=== PATIENT | male | born 1935 | race Caucasian/White ===

== ENCOUNTER 2018-09-28 19:50 | Inpatient (IN) | payer MEDICARE, OTHER ==
[2018-09-28 22:14] LABS: ADD MAN DIFF? NO
[2018-09-28 22:16] LABS: BASOPHILS % 0.3 % (0.0-2.0); EOSINOPHILS # 0.1 10^3/ul (0.0-0.5); HEMATOCRIT 41.3 % (42.0-52.0); LYMPHOCYTES # 1.8 10^3/ul (0.8-2.9); MEAN CORPUSCULAR HGB CONC 33.9 g/dl (32.0-37.0); MEAN CORPUSCULAR VOLUME 100.2 fl (82.0-101.0); MONOCYTE # 0.6 10^3/ul (0.3-0.9); MONOCYTES % 5.4 % (0.0-11.0); NEUTROPHIL # 8.1 10^3/ul (1.6-7.5); PLATELET COUNT 140 10^3/UL (140-415); POSITIVE DIFF @See below; RED BLOOD COUNT 4.12 10^6/ul (4.70-6.10); RED CELL DISTRIBUTION WIDTH 13.1 % (11.5-14.5)
[2018-09-28 22:16] LABS: WHITE BLOOD COUNT 10.7 10^3/ul (4.8-10.8)
[2018-09-28] MEDS: ONDANSETRON 4 MG INJ IV (22:18)
[2018-09-28 22:46] LABS: ALANINE AMINOTRANSFERASE 19 IU/L (13-69); ALBUMIN 4.1 g/dl (3.3-4.9); ALBUMIN/GLOBULIN RATIO 1.13; ALKALINE PHOSPHATASE 82 IU/L (42-121); ANION GAP 9 (5-13); ASPARTATE AMINO TRANSFERASE 31 IU/L (15-46); BILIRUBIN,INDIRECT 0.5 mg/dl (0-1.1); BILIRUBIN,TOTAL 0.5 mg/dl (0.2-1.3); BLOOD UREA NITROGEN 26 mg/dl (7-20); CALCIUM 10.1 mg/dl (8.4-10.2); CARBON DIOXIDE 28 mmol/L (21-31); CHLORIDE 101 mmol/L (97-110); CREATININE 1.26 mg/dl (0.61-1.24); GLUCOSE 123 mg/dl (70-220); POTASSIUM 4.3 mmol/L (3.5-5.1); SODIUM 138 mmol/L (135-144); TOTAL PROTEIN 7.7 g/dl (6.1-8.1)
[2018-09-28 23:07] LABS: B-TYPE NATRIURETIC PEPTIDE 1150 PG/ML (0-450); TROPONIN-I < 0.012 ng/ml (0.000-0.120)
[2018-09-29] MEDS ORDERED: ACETAMINOPHEN 325 MG TAB PO (00:30)
[2018-09-29] MEDS ORDERED: ONDANSETRON 4 MG INJ IV ×2 (00:30→01:00)
[2018-09-29] MEDS: CEFTRIAXONE 1 GM/50 ML (PMX) 50 ML IVPB ×2 (00:30→23:28)
[2018-09-29] MEDS: AZITHROMYCIN 500MG/NS (PMX) 250 ML IV (00:57)
[2018-09-29] MEDS ORDERED: DOCUSATE SODIUM 100 MG CAP PO (01:00)
[2018-09-29] MEDS ORDERED: NACL 0.9% 3 ML SYG IV (01:00)
[2018-09-29 06:15] LABS: ADD MAN DIFF? NO
[2018-09-29 06:24] LABS: BASOPHIL # 0.1 10^3/ul (0.0-0.1); BASOPHILS % 0.6 % (0.0-2.0); EOSINOPHILS # 0.2 10^3/ul (0.0-0.5); EOSINOPHILS % 2.2 % (0.0-7.0); HEMATOCRIT 40.2 % (42.0-52.0); HEMOGLOBIN 13.2 g/dl (14.0-18.0); LYMPHOCYTES # 1.8 10^3/ul (0.8-2.9); LYMPHOCYTES % 21.6 % (15.0-51.0); MEAN CORPUSCULAR HEMOGLOBIN 33.6 pg (29.0-33.0); MEAN CORPUSCULAR HGB CONC 32.8 g/dl (32.0-37.0); MEAN CORPUSCULAR VOLUME 102.3 fl (82.0-101.0); MONOCYTE # 0.7 10^3/ul (0.3-0.9); MONOCYTES % 7.9 % (0.0-11.0); NEUTROPHIL # 5.6 10^3/ul (1.6-7.5); NEUTROPHILS % 67.5 % (39.0-77.0); PLATELET COUNT 120 10^3/UL (140-415); RED BLOOD COUNT 3.93 10^6/ul (4.70-6.10)
[2018-09-29 06:24] LABS: WHITE BLOOD COUNT 8.2 10^3/ul (4.8-10.8)
[2018-09-29 06:26] LABS: HEMOGLOBIN A1C 4.6 % (0-5.9)
[2018-09-29 06:43] LABS: CREATINE KINASE 39 IU/L (23-200)
[2018-09-29 06:47] LABS: ALANINE AMINOTRANSFERASE 23 IU/L (13-69); ALBUMIN 3.6 g/dl (3.3-4.9); ALKALINE PHOSPHATASE 59 IU/L (42-121); ANION GAP 8 (5-13); ASPARTATE AMINO TRANSFERASE 28 IU/L (15-46); BILIRUBIN,INDIRECT 0.5 mg/dl (0-1.1); BILIRUBIN,TOTAL 0.5 mg/dl (0.2-1.3); BLOOD UREA NITROGEN 22 mg/dl (7-20); CALCIUM 9.1 mg/dl (8.4-10.2); CARBON DIOXIDE 32 mmol/L (21-31); CHLORIDE 102 mmol/L (97-110); CHOL/HDL RATIO 4.5 RATIO; CHOLESTEROL 158 mg/dl (100-200); CREATININE 1.16 mg/dl (0.61-1.24); GLUCOSE 95 mg/dl (70-220); HDL CHOLESTEROL 35 mg/dl (31-75); LDL CHOLESTEROL,CALCULATED 105 mg/dl; MAGNESIUM 2.2 mg/dl (1.7-2.5); POTASSIUM 3.9 mmol/L (3.5-5.1); SODIUM 142 mmol/L (135-144); TOTAL PROTEIN 7.2 g/dl (6.1-8.1); TRIGLYCERIDES 90 mg/dl (0-149)
[2018-09-29 06:57] LABS: CK-MB 0.78 ng/ml (0.0-2.4); TROPONIN-I < 0.012 ng/ml (0.000-0.120)
[2018-09-29] MEDS: FUROSEMIDE 40 MG INJ IV (08:36)
[2018-09-29] MEDS: ENOXAPARIN 30 MG/0.3 ML SYG SC (08:44)
[2018-09-29] MEDS: ACETAMINOPHEN 325 MG TAB PO (10:07)
[2018-09-29 11:10] LABS: CREATINE KINASE 39 IU/L (23-200)
[2018-09-29 11:21] LABS: CK INDEX 1.6; CK-MB 0.64 ng/ml (0.0-2.4)
[2018-09-29 11:24] LABS: TROPONIN-I < 0.012 ng/ml (0.000-0.120)
[2018-09-29] MEDS: AZITHROMYCIN 250 MG TAB PO (21:04)
[2018-09-29] MEDS ORDERED: AZITHROMYCIN 500MG/NS (PMX) 250 ML IVPB (23:00)
[2018-09-30] MEDS: ACETAMINOPHEN 325 MG TAB PO ×2 (03:29→09:14)
[2018-09-30] MEDS ORDERED: POLYETHYLENE GLYCOL 17 GM PACKET GTB (06:30)
[2018-09-30 06:50] LABS: ADD MAN DIFF? NO
[2018-09-30 06:53] LABS: BASOPHILS % 0.3 % (0.0-2.0); EOSINOPHILS # 0.1 10^3/ul (0.0-0.5); EOSINOPHILS % 0.9 % (0.0-7.0); HEMATOCRIT 39.7 % (42.0-52.0); HEMOGLOBIN 13.2 g/dl (14.0-18.0); LYMPHOCYTES # 1.7 10^3/ul (0.8-2.9); LYMPHOCYTES % 18.6 % (15.0-51.0); MEAN CORPUSCULAR HEMOGLOBIN 33.6 pg (29.0-33.0); MEAN CORPUSCULAR HGB CONC 33.2 g/dl (32.0-37.0); MEAN PLATELET VOLUME 12.4 fl (7.4-10.4); MONOCYTE # 0.7 10^3/ul (0.3-0.9); MONOCYTES % 7.7 % (0.0-11.0); NEUTROPHIL # 6.4 10^3/ul (1.6-7.5); NEUTROPHILS % 72.2 % (39.0-77.0); PLATELET COUNT 127 10^3/UL (140-415); RED BLOOD COUNT 3.93 10^6/ul (4.70-6.10)
[2018-09-30 06:53] LABS: WHITE BLOOD COUNT 8.9 10^3/ul (4.8-10.8)
[2018-09-30] MEDS: POLYETHYLENE GLYCOL 17 GM PACKET PO (06:54)
[2018-09-30] MEDS: DOCUSATE SODIUM 100 MG CAP PO ×2 (06:54→21:32)
[2018-09-30] MEDS: BISACODYL (EC) 5 MG TAB PO (06:54)
[2018-09-30 07:08] LABS: ALANINE AMINOTRANSFERASE 23 IU/L (13-69); ALBUMIN 3.6 g/dl (3.3-4.9); ALKALINE PHOSPHATASE 61 IU/L (42-121); ANION GAP 11 (5-13); ASPARTATE AMINO TRANSFERASE 29 IU/L (15-46); BILIRUBIN,INDIRECT 0.5 mg/dl (0-1.1); BILIRUBIN,TOTAL 0.5 mg/dl (0.2-1.3); BLOOD UREA NITROGEN 25 mg/dl (7-20); CARBON DIOXIDE 31 mmol/L (21-31); CHLORIDE 100 mmol/L (97-110); CREATININE 1.12 mg/dl (0.61-1.24); GLUCOSE 94 mg/dl (70-220); POTASSIUM 4.3 mmol/L (3.5-5.1); SODIUM 142 mmol/L (135-144); TOTAL PROTEIN 7.2 g/dl (6.1-8.1)
[2018-09-30] MEDS: ENOXAPARIN 30 MG/0.3 ML SYG SC (09:18)
[2018-09-30] MEDS: LISINOPRIL 5 MG TAB PO (11:41)
[2018-09-30] MEDS: FUROSEMIDE 20 MG INJ IV (11:42)
[2018-09-30] MEDS: NA PHOSPHATE/BIPHOS 133 ML ENEMA PR (14:00)
[2018-09-30] MEDS: METOPROLOL 50 MG TAB PO ×2 (18:45→19:33)
[2018-09-30] MEDS: PREGABALIN 75 MG CAP PO (21:32)
[2018-09-30] MEDS: AZITHROMYCIN 250 MG TAB PO (21:34)
[2018-09-30] MEDS: CEFTRIAXONE 1 GM/50 ML (PMX) 50 ML IVPB (23:21)
[2018-10-01] MEDS: MAGNESIUM HYDROXIDE 30ML CUP PO (02:44)
[2018-10-01 06:18] LABS: ADD MAN DIFF? NO
[2018-10-01 06:24] LABS: BASOPHILS % 0.4 % (0.0-2.0); EOSINOPHILS # 0.1 10^3/ul (0.0-0.5); EOSINOPHILS % 0.9 % (0.0-7.0); HEMATOCRIT 42.4 % (42.0-52.0); HEMOGLOBIN 14.1 g/dl (14.0-18.0); LYMPHOCYTES % 22.3 % (15.0-51.0); MEAN CORPUSCULAR HEMOGLOBIN 33.5 pg (29.0-33.0); MEAN CORPUSCULAR HGB CONC 33.3 g/dl (32.0-37.0); MEAN CORPUSCULAR VOLUME 100.7 fl (82.0-101.0); MEAN PLATELET VOLUME 12.4 fl (7.4-10.4); MONOCYTE # 0.8 10^3/ul (0.3-0.9); MONOCYTES % 8.4 % (0.0-11.0); NEUTROPHILS % 67.8 % (39.0-77.0); PLATELET COUNT 131 10^3/UL (140-415); RED BLOOD COUNT 4.21 10^6/ul (4.70-6.10); RED CELL DISTRIBUTION WIDTH 13.2 % (11.5-14.5)
[2018-10-01 06:24] LABS: WHITE BLOOD COUNT 8.9 10^3/ul (4.8-10.8)
[2018-10-01 07:05] LABS: MAGNESIUM 2.5 mg/dl (1.7-2.5)
[2018-10-01 07:05] LABS: PHOSPHORUS 3.1 mg/dl (2.5-4.9)
[2018-10-01 07:23] LABS: ANION GAP 10 (5-13); BLOOD UREA NITROGEN 29 mg/dl (7-20); CALCIUM 9.1 mg/dl (8.4-10.2); CARBON DIOXIDE 33 mmol/L (21-31); CHLORIDE 100 mmol/L (97-110); CREATININE 1.29 mg/dl (0.61-1.24); GLUCOSE 95 mg/dl (70-220); POTASSIUM 4.5 mmol/L (3.5-5.1); SODIUM 143 mmol/L (135-144)
[2018-10-01 07:35] LABS: B-TYPE NATRIURETIC PEPTIDE 941 PG/ML (0-450)
[2018-10-01] MEDS: LISINOPRIL 5 MG TAB PO (08:37)
[2018-10-01] MEDS: METOPROLOL 50 MG TAB PO ×2 (08:37→19:50)
[2018-10-01] MEDS: DOCUSATE SODIUM 100 MG CAP PO ×2 (08:37→19:50)
[2018-10-01] MEDS: POLYETHYLENE GLYCOL 17 GM PACKET PO (08:38)
[2018-10-01] MEDS: LOSARTAN 50 MG TAB PO (08:38)
[2018-10-01] MEDS: FUROSEMIDE 20 MG INJ IV (08:38)
[2018-10-01] MEDS: ENOXAPARIN 30 MG/0.3 ML SYG SC (08:52)
[2018-10-01] MEDS: PREGABALIN 75 MG CAP PO ×2 (08:53→19:51)
[2018-10-01] MEDS: ACETAMINOPHEN 325 MG TAB PO (14:31)
[2018-10-01] MEDS: CEFTRIAXONE 1 GM/50 ML (PMX) 50 ML IVPB (19:50)
[2018-10-01] MEDS: AZITHROMYCIN 250 MG TAB PO (19:51)
[2018-10-02 06:53] LABS: ADD MAN DIFF? NO
[2018-10-02 06:55] LABS: BASOPHILS % 0.5 % (0.0-2.0); EOSINOPHILS # 0.3 10^3/ul (0.0-0.5); EOSINOPHILS % 3.2 % (0.0-7.0); HEMATOCRIT 39.4 % (42.0-52.0); LYMPHOCYTES # 2.1 10^3/ul (0.8-2.9); LYMPHOCYTES % 25.5 % (15.0-51.0); MEAN CORPUSCULAR HEMOGLOBIN 33.7 pg (29.0-33.0); MEAN CORPUSCULAR VOLUME 102.1 fl (82.0-101.0); MEAN PLATELET VOLUME 12.2 fl (7.4-10.4); MONOCYTE # 0.7 10^3/ul (0.3-0.9); MONOCYTES % 8.1 % (0.0-11.0); NEUTROPHIL # 5.1 10^3/ul (1.6-7.5); NEUTROPHILS % 62.5 % (39.0-77.0); PLATELET COUNT 121 10^3/UL (140-415); RED BLOOD COUNT 3.86 10^6/ul (4.70-6.10)
[2018-10-02 06:55] LABS: WHITE BLOOD COUNT 8.2 10^3/ul (4.8-10.8)
[2018-10-02 07:52] LABS: PHOSPHORUS 3.5 mg/dl (2.5-4.9)
[2018-10-02 07:53] LABS: ALANINE AMINOTRANSFERASE 18 IU/L (13-69); ALBUMIN 3.4 g/dl (3.3-4.9); ALBUMIN/GLOBULIN RATIO 0.94; ALKALINE PHOSPHATASE 56 IU/L (42-121); ANION GAP 11 (5-13); ASPARTATE AMINO TRANSFERASE 28 IU/L (15-46); BILIRUBIN,INDIRECT 0.6 mg/dl (0-1.1); BILIRUBIN,TOTAL 0.6 mg/dl (0.2-1.3); BLOOD UREA NITROGEN 34 mg/dl (7-20); CARBON DIOXIDE 31 mmol/L (21-31); CHLORIDE 100 mmol/L (97-110); CREATININE 1.18 mg/dl (0.61-1.24); GLUCOSE 93 mg/dl (70-220); POTASSIUM 4.3 mmol/L (3.5-5.1); SODIUM 142 mmol/L (135-144)
[2018-10-02] MEDS: METOPROLOL 50 MG TAB PO (08:21)
[2018-10-02] MEDS: LISINOPRIL 5 MG TAB PO (08:22)
[2018-10-02] MEDS: DOCUSATE SODIUM 100 MG CAP PO (08:22)
[2018-10-02] MEDS: LOSARTAN 50 MG TAB PO (08:22)
[2018-10-02] MEDS: POLYETHYLENE GLYCOL 17 GM PACKET PO (08:22)
[2018-10-02] MEDS: FUROSEMIDE 20 MG INJ IV (08:22)
[2018-10-02] MEDS: ENOXAPARIN 30 MG/0.3 ML SYG SC (08:28)
[2018-10-02] MEDS: PREGABALIN 75 MG CAP PO (08:34)
[2018-10-02] MEDS ORDERED: NICOTINE (14 MG/24 HR) PATCH TRANSDERM (13:30)
[2018-10-02] MEDS: ASPIRIN (EC) 81 MG TAB PO (15:29)
== END 2018-10-02 16:59 | disposition home or self-care (01) | DRG 194 ==
LOC: E/R 19:50 → TEL 09-29 00:14
DX: J18.9 Pneumonia, unspecified organism (principal); I50.30 Unspecified diastolic (congestive) heart failure; I13.0 Hypertensive heart and chronic kidney disease with heart failure and stage 1 through stage 4 chronic kidney disease, or unspecified chronic kidney disease; I11.0 Hypertensive heart disease with heart failure; R07.89 Other chest pain; I25.10 Atherosclerotic heart disease of native coronary artery without angina pectoris; K59.00 Constipation, unspecified; N18.9 Chronic kidney disease, unspecified; F17.210 Nicotine dependence, cigarettes, uncomplicated; J43.9 Emphysema, unspecified; Z95.0 Presence of cardiac pacemaker
CPT/HCPCS: 36415; 70450; 71045; 71250; 80048; 80053; 80061; 82550; 82553; 83036; 83605; 83735; 83880; 84100; 84443; 84484; 85025; 93005; 93306; 96374; 99285-25

== ENCOUNTER 2018-10-22 18:01 | Inpatient (IN) | payer MEDICARE, OTHER ==
[2018-10-22] MEDS: SOD CHLORIDE 0.9% 500 ML IV (21:17)
[2018-10-22 21:49] LABS: ADD MAN DIFF? NO
[2018-10-22 21:51] LABS: WHITE BLOOD COUNT 9.3 10^3/ul (4.8-10.8)
[2018-10-22 21:51] LABS: BASOPHILS % 0.4 % (0.0-2.0); EOSINOPHILS # 0.1 10^3/ul (0.0-0.5); EOSINOPHILS % 1.2 % (0.0-7.0); HEMATOCRIT 38.4 % (42.0-52.0); HEMOGLOBIN 12.6 g/dl (14.0-18.0); LYMPHOCYTES # 2.1 10^3/ul (0.8-2.9); LYMPHOCYTES % 22.3 % (15.0-51.0); MEAN CORPUSCULAR HEMOGLOBIN 33.6 pg (29.0-33.0); MEAN CORPUSCULAR HGB CONC 32.8 g/dl (32.0-37.0); MEAN CORPUSCULAR VOLUME 102.4 fl (82.0-101.0); MONOCYTE # 0.6 10^3/ul (0.3-0.9); MONOCYTES % 6.3 % (0.0-11.0); NEUTROPHIL # 6.5 10^3/ul (1.6-7.5); NEUTROPHILS % 69.5 % (39.0-77.0); PLATELET COUNT 135 10^3/UL (140-415); POSITIVE DIFF @See below; RED BLOOD COUNT 3.75 10^6/ul (4.70-6.10); RED CELL DISTRIBUTION WIDTH 13.1 % (11.5-14.5)
[2018-10-22 22:14] LABS: ALANINE AMINOTRANSFERASE 21 IU/L (13-69); ALBUMIN 3.8 g/dl (3.3-4.9); ALBUMIN/GLOBULIN RATIO 1.08; ALKALINE PHOSPHATASE 58 IU/L (42-121); ANION GAP 12 (5-13); ASPARTATE AMINO TRANSFERASE 26 IU/L (15-46); BILIRUBIN,INDIRECT 0.4 mg/dl (0-1.1); BILIRUBIN,TOTAL 0.4 mg/dl (0.2-1.3); BLOOD UREA NITROGEN 24 mg/dl (7-20); CALCIUM 9.2 mg/dl (8.4-10.2); CARBON DIOXIDE 27 mmol/L (21-31); CHLORIDE 100 mmol/L (97-110); CREATININE 1.22 mg/dl (0.61-1.24); GLUCOSE 111 mg/dl (70-220); POTASSIUM 3.8 mmol/L (3.5-5.1); SODIUM 139 mmol/L (135-144); TOTAL PROTEIN 7.3 g/dl (6.1-8.1)
[2018-10-22 22:25] LABS: TROPONIN-I < 0.012 ng/ml (0.000-0.120)
[2018-10-22 22:30] LABS: FREE THYROXINE INDEX (Calc) 4.79 ug/ml (0.65-3.89); T3 UPTAKE 37.1 % (23.5-40.5); T4 (THYROXINE) 12.9 ug/dl (5.5-11.0)
[2018-10-22] MEDS ORDERED: ACETAMINOPHEN 325 MG TAB PO ×2 (23:00)
[2018-10-22] MEDS ORDERED: NICOTINE (14 MG/24 HR) PATCH TRANSDERM (23:00)
[2018-10-22] MEDS ORDERED: DOCUSATE SODIUM 100 MG CAP PO (23:00)
[2018-10-22] MEDS ORDERED: ONDANSETRON 4 MG INJ IV (23:00)
[2018-10-22] MEDS ORDERED: ALBUTEROL 0.083% (NEB) 2.5 MG/3 ML AMP HHN (23:00)
[2018-10-23] MEDS ORDERED: NACL 0.9% 3 ML SYG IV
[2018-10-23] MEDS ORDERED: NITROGLYCERIN (SL) 0.4 MG TAB SL
[2018-10-23] MEDS ORDERED: MAGNESIUM HYDROXIDE 30ML CUP PO
[2018-10-23] MEDS: hydrALAzine 20 MG INJ IV (00:37)
[2018-10-23] MEDS: ACETAMINOPHEN 325 MG TAB PO ×3 (01:00→15:16)
[2018-10-23] MEDS ORDERED: LORAZEPAM 2 MG INJ IV (02:30)
[2018-10-23] MEDS: traZODone 50 MG TAB PO ×2 (02:47→21:52)
[2018-10-23] MEDS: ONDANSETRON 4 MG INJ IV (04:35)
[2018-10-23] MEDS: LISINOPRIL 5 MG TAB PO (08:12)
[2018-10-23] MEDS: ASPIRIN (EC) 81 MG TAB PO (08:12)
[2018-10-23] MEDS: METOPROLOL 25 MG TAB PO ×2 (08:13→21:52)
[2018-10-23] MEDS: ENOXAPARIN 30 MG/0.3 ML SYG SC (08:23)
[2018-10-23 08:30] LABS: ADD MAN DIFF? NO
[2018-10-23 08:37] LABS: WHITE BLOOD COUNT 5.7 10^3/ul (4.8-10.8)
[2018-10-23 08:37] LABS: BASOPHILS % 0.3 % (0.0-2.0); EOSINOPHILS # 0.1 10^3/ul (0.0-0.5); HEMATOCRIT 37.2 % (42.0-52.0); HEMOGLOBIN 12.5 g/dl (14.0-18.0); LYMPHOCYTES # 1.2 10^3/ul (0.8-2.9); LYMPHOCYTES % 20.5 % (15.0-51.0); MEAN CORPUSCULAR HEMOGLOBIN 34.1 pg (29.0-33.0); MEAN CORPUSCULAR HGB CONC 33.6 g/dl (32.0-37.0); MEAN CORPUSCULAR VOLUME 101.4 fl (82.0-101.0); MEAN PLATELET VOLUME 12.5 fl (7.4-10.4); MONOCYTE # 0.5 10^3/ul (0.3-0.9); MONOCYTES % 8.9 % (0.0-11.0); NEUTROPHILS % 69.1 % (39.0-77.0); PLATELET COUNT 123 10^3/UL (140-415); RED BLOOD COUNT 3.67 10^6/ul (4.70-6.10); RED CELL DISTRIBUTION WIDTH 13.1 % (11.5-14.5)
[2018-10-23] MEDS ORDERED: METOPROLOL 50 MG TAB PO (09:00)
[2018-10-23 09:06] LABS: ANION GAP 10 (5-13); BLOOD UREA NITROGEN 19 mg/dl (7-20); CALCIUM 8.8 mg/dl (8.4-10.2); CARBON DIOXIDE 28 mmol/L (21-31); CHLORIDE 102 mmol/L (97-110); GLUCOSE 110 mg/dl (70-220); MAGNESIUM 2.1 mg/dl (1.7-2.5); SODIUM 140 mmol/L (135-144)
[2018-10-23 09:46] LABS: ADD UMIC NO; UR ASCORBIC ACID NEGATIVE (NEGATIVE); UR BILIRUBIN (Dip) NEGATIVE (NEGATIVE); UR BLOOD (Dip) NEGATIVE (NEGATIVE); UR CLARITY CLEAR (CLEAR); UR COLOR STRAW (YELLOW); UR GLUCOSE (Dip) NEGATIVE (NEGATIVE); UR KETONES (Dip) TRACE mg/dL (NEGATIVE); UR LEUKOCYTE ESTERASE (Dip) NEGATIVE Leu/ul (NEGATIVE); UR NITRITE (Dip) NEGATIVE (NEGATIVE); UR SPECIFIC GRAVITY (Dip) 1.009 (1.003-1.030); UR TOTAL PROTEIN (Dip) NEGATIVE (NEGATIVE); UR UROBILINOGEN (Dip) NEGATIVE (NEGATIVE)
[2018-10-24] MEDS: ACETAMINOPHEN 325 MG TAB PO ×3 (07:47→20:19)
[2018-10-24] MEDS: METOPROLOL 25 MG TAB PO (08:04)
[2018-10-24] MEDS: ASPIRIN (EC) 81 MG TAB PO (08:04)
[2018-10-24] MEDS: LISINOPRIL 5 MG TAB PO (08:05)
[2018-10-24] MEDS: ENOXAPARIN 30 MG/0.3 ML SYG SC (08:08)
[2018-10-24] MEDS ORDERED: BENZONATATE 100 MG CAP PO (09:30)
[2018-10-24] MEDS: LORATADINE 10 MG TAB PO (12:08)
[2018-10-24] MEDS: GUAIFENESIN LA 600 MG TABSR PO ×2 (12:08→20:19)
[2018-10-24] MEDS: FLUTICASONE 0.05% 16 GM NAS SPRAY NASAL ×2 (13:24→20:19)
[2018-10-24] MEDS: METOPROLOL 100 MG TAB PO (20:20)
[2018-10-25] MEDS: FLUTICASONE 0.05% 16 GM NAS SPRAY NASAL (08:18)
[2018-10-25] MEDS: LORATADINE 10 MG TAB PO (08:19)
[2018-10-25] MEDS: LISINOPRIL 5 MG TAB PO (08:19)
[2018-10-25] MEDS: METOPROLOL 100 MG TAB PO (08:20)
[2018-10-25] MEDS: GUAIFENESIN LA 600 MG TABSR PO (08:20)
[2018-10-25] MEDS: ASPIRIN (EC) 81 MG TAB PO (08:20)
[2018-10-25] MEDS: ENOXAPARIN 30 MG/0.3 ML SYG SC (08:24)
[2018-10-25 11:17] LABS: ADD MAN DIFF? NO
[2018-10-25 11:22] LABS: WHITE BLOOD COUNT 8.9 10^3/ul (4.8-10.8)
[2018-10-25 11:22] LABS: BASOPHILS % 0.4 % (0.0-2.0); EOSINOPHILS # 0.1 10^3/ul (0.0-0.5); EOSINOPHILS % 0.8 % (0.0-7.0); HEMATOCRIT 36.7 % (42.0-52.0); HEMOGLOBIN 12.4 g/dl (14.0-18.0); LYMPHOCYTES # 1.4 10^3/ul (0.8-2.9); LYMPHOCYTES % 15.1 % (15.0-51.0); MEAN CORPUSCULAR HEMOGLOBIN 34.4 pg (29.0-33.0); MEAN CORPUSCULAR HGB CONC 33.8 g/dl (32.0-37.0); MEAN CORPUSCULAR VOLUME 101.9 fl (82.0-101.0); MONOCYTE # 0.6 10^3/ul (0.3-0.9); MONOCYTES % 6.4 % (0.0-11.0); NEUTROPHIL # 6.9 10^3/ul (1.6-7.5); PLATELET COUNT 133 10^3/UL (140-415); RED CELL DISTRIBUTION WIDTH 13.2 % (11.5-14.5)
[2018-10-25 11:40] LABS: IRON 45 ug/dl (35-150)
[2018-10-25 11:41] LABS: ALBUMIN 3.3 g/dl (3.3-4.9); ANION GAP 2 (5-13); BLOOD UREA NITROGEN 22 mg/dl (7-20); CALCIUM 9.1 mg/dl (8.4-10.2); CARBON DIOXIDE 31 mmol/L (21-31); CHLORIDE 104 mmol/L (97-110); CREATININE 1.22 mg/dl (0.61-1.24); GLUCOSE 93 mg/dl (70-220); PHOSPHORUS 3.1 mg/dl (2.5-4.9); POTASSIUM 4.6 mmol/L (3.5-5.1); SODIUM 137 mmol/L (135-144)
[2018-10-25 11:49] LABS: % IRON SATURATION 20 % SAT (22-52); TOTAL IRON BINDING CAPACITY 229 ug/dl (241-421)
[2018-10-25] MEDS: DOCUSATE SODIUM 100 MG CAP PO (12:56)
[2018-10-25 14:41] LABS: FOLATE 15.3 ng/ml (2.8-20.0)
[2018-10-25] MEDS: CYANOCOBALAMIN 500 MCG TAB PO (16:55)
[2018-10-25] MEDS: FERROUS SULFATE (EC) 325 MG TAB PO (16:55)
== END 2018-10-25 17:04 | disposition home health service (06) | DRG 310 ==
LOC: E/R 18:01 → TEL 22:47
DX: I48.91 Unspecified atrial fibrillation (principal); R51 Headache; R53.1 Weakness; D50.9 Iron deficiency anemia, unspecified; E53.8 Deficiency of other specified B group vitamins; I11.0 Hypertensive heart disease with heart failure; I50.9 Heart failure, unspecified; Z79.4 Long term (current) use of insulin
CPT/HCPCS: 70450; 71045; 80048; 80053; 80069; 81003; 82306; 82607; 82652; 82746; 82962; 83540; 83735; 84436; 84443; 84479; 84484; 85025; 93005; 97116; 97161; 97167; 97530; 97535; 99285-25; G0378

== ENCOUNTER 2018-11-23 04:57 | Inpatient (IN) | payer MEDICARE, OTHER ==
[2018-11-23 05:25] LABS: ADD MAN DIFF? NO
[2018-11-23] MEDS: IPRATROPIUM (NEB) 0.5 MG/2.5 ML AMP NEB (05:25)
[2018-11-23] MEDS: ALBUTEROL 0.083% (NEB) 2.5 MG/3 ML AMP NEB (05:25)
[2018-11-23] MEDS: ASPIRIN 81 MG TAB PO ×2 (05:29→10:38)
[2018-11-23 05:32] LABS: BASOPHILS % 0.4 % (0.0-2.0); EOSINOPHILS # 0.1 10^3/ul (0.0-0.5); EOSINOPHILS % 1.4 % (0.0-7.0); HEMATOCRIT 39.9 % (42.0-52.0); HEMOGLOBIN 13.5 g/dl (14.0-18.0); LYMPHOCYTES # 1.4 10^3/ul (0.8-2.9); LYMPHOCYTES % 18.8 % (15.0-51.0); MEAN CORPUSCULAR HEMOGLOBIN 34.4 pg (29.0-33.0); MEAN CORPUSCULAR HGB CONC 33.8 g/dl (32.0-37.0); MEAN CORPUSCULAR VOLUME 101.8 fl (82.0-101.0); MONOCYTE # 0.6 10^3/ul (0.3-0.9); MONOCYTES % 8.1 % (0.0-11.0); NEUTROPHIL # 5.1 10^3/ul (1.6-7.5); NEUTROPHILS % 70.9 % (39.0-77.0); PLATELET COUNT 127 10^3/UL (140-415); RED BLOOD COUNT 3.92 10^6/ul (4.70-6.10)
[2018-11-23 05:32] LABS: WHITE BLOOD COUNT 7.2 10^3/ul (4.8-10.8)
[2018-11-23 05:46] LABS: ANION GAP 10 (5-13); BLOOD UREA NITROGEN 17 mg/dl (7-20); CALCIUM 9.3 mg/dl (8.4-10.2); CARBON DIOXIDE 26 mmol/L (21-31); CHLORIDE 105 mmol/L (97-110); CREATININE 1.16 mg/dl (0.61-1.24); GLUCOSE 117 mg/dl (70-220); SODIUM 141 mmol/L (135-144)
[2018-11-23 05:48] LABS: INR 1.58; PT RATIO 1.5
[2018-11-23 05:49] LABS: PARTIAL THROMBOPLASTIN TIME 37.2 Sec (23.0-35.0)
[2018-11-23 05:58] LABS: B-TYPE NATRIURETIC PEPTIDE 3290 PG/ML (0-450); TROPONIN-I 0.018 ng/ml (0.000-0.120)
[2018-11-23] MEDS ORDERED: DOCUSATE SODIUM 100 MG CAP PO ×2 (06:00)
[2018-11-23] MEDS ORDERED: NACL 0.9% 3 ML SYG IV (06:00)
[2018-11-23] MEDS: FUROSEMIDE 40 MG INJ IV ×3 (06:15→13:59)
[2018-11-23] MEDS: NITROGLYCERIN 2% 1 GM OINT PKT TD (06:15)
[2018-11-23] MEDS: NITROGLYCERIN (SL) 0.4 MG TAB SL (06:15)
[2018-11-23] MEDS: ONDANSETRON 4 MG INJ IV (06:15)
[2018-11-23 07:18] LABS: ALANINE AMINOTRANSFERASE 21 IU/L (13-69); ALBUMIN 3.7 g/dl (3.3-4.9); ALKALINE PHOSPHATASE 66 IU/L (42-121); ASPARTATE AMINO TRANSFERASE 29 IU/L (15-46); BILIRUBIN,INDIRECT 0.7 mg/dl (0-1.1); BILIRUBIN,TOTAL 0.7 mg/dl (0.2-1.3); TOTAL PROTEIN 6.9 g/dl (6.1-8.1)
[2018-11-23] MEDS: HEPARIN 5,000 UNIT/1 ML VIAL SC (09:37)
[2018-11-23] MEDS: FLUTICASONE 0.05% 16 GM NAS SPRAY NASAL ×2 (10:37→21:37)
[2018-11-23] MEDS: FERROUS SULFATE (EC) 325 MG TAB PO (10:37)
[2018-11-23] MEDS: ASPIRIN (EC) 81 MG TAB PO (10:38)
[2018-11-23] MEDS: LORATADINE 10 MG TAB PO (10:38)
[2018-11-23] MEDS: ACETAMINOPHEN 325 MG TAB PO ×2 (11:03→17:22)
[2018-11-23 11:26] LABS: CREATINE KINASE 28 IU/L (23-200)
[2018-11-23 11:39] LABS: CK INDEX 1.7; CK-MB 0.47 ng/ml (0.0-2.4); TROPONIN-I < 0.012 ng/ml (0.000-0.120)
[2018-11-23] MEDS: IBUPROFEN 600 MG TAB PO ×2 (13:58→22:34)
[2018-11-23 17:36] LABS: CREATINE KINASE 31 IU/L (23-200)
[2018-11-23 17:49] LABS: CK INDEX 0.9; CK-MB 0.28 ng/ml (0.0-2.4); TROPONIN-I < 0.012 ng/ml (0.000-0.120)
[2018-11-23] MEDS: HYDROCODONE/APAP (5/325) TAB PO (18:19)
[2018-11-23] MEDS: METOPROLOL 50 MG TAB PO (20:20)
[2018-11-24] MEDS: HYDROCODONE/APAP (5/325) TAB PO (01:15)
[2018-11-24] MEDS: ALBUTEROL/IPRATROPIUM (NEB) 3 ML AMP HHN (04:10)
[2018-11-24 06:37] LABS: ADD MAN DIFF? NO
[2018-11-24 06:38] LABS: BASOPHILS % 0.4 % (0.0-2.0); EOSINOPHILS # 0.2 10^3/ul (0.0-0.5); EOSINOPHILS % 2.5 % (0.0-7.0); HEMATOCRIT 37.6 % (42.0-52.0); HEMOGLOBIN 12.6 g/dl (14.0-18.0); LYMPHOCYTES # 1.8 10^3/ul (0.8-2.9); LYMPHOCYTES % 26.5 % (15.0-51.0); MEAN CORPUSCULAR HEMOGLOBIN 34.2 pg (29.0-33.0); MEAN CORPUSCULAR HGB CONC 33.5 g/dl (32.0-37.0); MEAN CORPUSCULAR VOLUME 102.2 fl (82.0-101.0); MONOCYTE # 0.5 10^3/ul (0.3-0.9); MONOCYTES % 7.9 % (0.0-11.0); NEUTROPHIL # 4.2 10^3/ul (1.6-7.5); NEUTROPHILS % 62.3 % (39.0-77.0); PLATELET COUNT 118 10^3/UL (140-415); RED BLOOD COUNT 3.68 10^6/ul (4.70-6.10); RED CELL DISTRIBUTION WIDTH 13.2 % (11.5-14.5)
[2018-11-24 06:38] LABS: WHITE BLOOD COUNT 6.7 10^3/ul (4.8-10.8)
[2018-11-24 06:59] LABS: ALANINE AMINOTRANSFERASE 15 IU/L (13-69); ALBUMIN 3.5 g/dl (3.3-4.9); ALBUMIN/GLOBULIN RATIO 1.12; ALKALINE PHOSPHATASE 55 IU/L (42-121); ANION GAP 9 (5-13); ASPARTATE AMINO TRANSFERASE 27 IU/L (15-46); BILIRUBIN,INDIRECT 0.7 mg/dl (0-1.1); BILIRUBIN,TOTAL 0.7 mg/dl (0.2-1.3); BLOOD UREA NITROGEN 23 mg/dl (7-20); CALCIUM 9.1 mg/dl (8.4-10.2); CARBON DIOXIDE 30 mmol/L (21-31); CHLORIDE 101 mmol/L (97-110); CHOL/HDL RATIO 3.4 RATIO; CHOLESTEROL 136 mg/dl (100-200); CREATININE 1.61 mg/dl (0.61-1.24); GLUCOSE 87 mg/dl (70-220); HDL CHOLESTEROL 40 mg/dl (31-75); LDL CHOLESTEROL,CALCULATED 81 mg/dl; MAGNESIUM 2.2 mg/dl (1.7-2.5); POTASSIUM 3.6 mmol/L (3.5-5.1); SODIUM 140 mmol/L (135-144); TOTAL PROTEIN 6.6 g/dl (6.1-8.1); TRIGLYCERIDES 77 mg/dl (0-149)
[2018-11-24 07:05] LABS: B-TYPE NATRIURETIC PEPTIDE 4270 PG/ML (0-450)
[2018-11-24 07:58] LABS: HEMOGLOBIN A1C 4.6 % (0-5.9)
[2018-11-24] MEDS: CYANOCOBALAMIN 500 MCG TAB PO (08:24)
[2018-11-24] MEDS: FERROUS SULFATE (EC) 325 MG TAB PO (08:24)
[2018-11-24] MEDS: METOPROLOL 50 MG TAB PO ×2 (08:24→14:30)
[2018-11-24] MEDS: LORATADINE 10 MG TAB PO (08:25)
[2018-11-24] MEDS: FUROSEMIDE 40 MG INJ IV (08:25)
[2018-11-24] MEDS: FLUTICASONE 0.05% 16 GM NAS SPRAY NASAL ×2 (08:26→22:21)
[2018-11-24] MEDS: ASPIRIN 81 MG TAB PO (08:30)
[2018-11-24] MEDS: ENOXAPARIN 40 MG/0.4 ML SYG SC (08:35)
[2018-11-24] MEDS: FUROSEMIDE 20 MG TAB PO (14:31)
[2018-11-24] MEDS: IBUPROFEN 600 MG TAB PO (15:35)
[2018-11-24] MEDS: NITROGLYCERIN (SL) 0.4 MG TAB SL (17:41)
[2018-11-24] MEDS: METOPROLOL 100 MG TAB PO (22:21)
[2018-11-24] MEDS: ACETAMINOPHEN 325 MG TAB PO (23:55)
[2018-11-25] MEDS: HYDROCODONE/APAP (5/325) TAB PO ×3 (03:41→20:10)
[2018-11-25] MEDS ORDERED: BENZONATATE 100 MG CAP PO (04:00)
[2018-11-25] MEDS ORDERED: GUAIFENESIN/DM 5ML CUP PO (04:00)
[2018-11-25 05:37] LABS: ADD MAN DIFF? NO
[2018-11-25 05:41] LABS: BASOPHILS % 0.3 % (0.0-2.0); EOSINOPHILS # 0.2 10^3/ul (0.0-0.5); EOSINOPHILS % 1.7 % (0.0-7.0); HEMATOCRIT 39.3 % (42.0-52.0); HEMOGLOBIN 13.1 g/dl (14.0-18.0); LYMPHOCYTES # 1.4 10^3/ul (0.8-2.9); LYMPHOCYTES % 16.1 % (15.0-51.0); MEAN CORPUSCULAR HGB CONC 33.3 g/dl (32.0-37.0); MEAN CORPUSCULAR VOLUME 102.1 fl (82.0-101.0); MEAN PLATELET VOLUME 12.7 fl (7.4-10.4); MONOCYTE # 0.7 10^3/ul (0.3-0.9); MONOCYTES % 7.5 % (0.0-11.0); NEUTROPHIL # 6.6 10^3/ul (1.6-7.5); NEUTROPHILS % 74.1 % (39.0-77.0); PLATELET COUNT 127 10^3/UL (140-415); RED BLOOD COUNT 3.85 10^6/ul (4.70-6.10)
[2018-11-25 06:37] LABS: ALANINE AMINOTRANSFERASE 20 IU/L (13-69); ALBUMIN 3.5 g/dl (3.3-4.9); ALBUMIN/GLOBULIN RATIO 1.16; ALKALINE PHOSPHATASE 54 IU/L (42-121); ANION GAP 7 (5-13); ASPARTATE AMINO TRANSFERASE 25 IU/L (15-46); BILIRUBIN,INDIRECT 0.7 mg/dl (0-1.1); BILIRUBIN,TOTAL 0.7 mg/dl (0.2-1.3); BLOOD UREA NITROGEN 24 mg/dl (7-20); CALCIUM 9.2 mg/dl (8.4-10.2); CARBON DIOXIDE 29 mmol/L (21-31); CHLORIDE 104 mmol/L (97-110); CREATININE 1.44 mg/dl (0.61-1.24); GLUCOSE 96 mg/dl (70-220); POTASSIUM 3.8 mmol/L (3.5-5.1); SODIUM 140 mmol/L (135-144); TOTAL PROTEIN 6.5 g/dl (6.1-8.1)
[2018-11-25] MEDS: IBUPROFEN 600 MG TAB PO (08:00)
[2018-11-25] MEDS: LORATADINE 10 MG TAB PO (08:01)
[2018-11-25] MEDS: FUROSEMIDE 40 MG INJ IV ×2 (08:01→12:33)
[2018-11-25] MEDS: FERROUS SULFATE (EC) 325 MG TAB PO (08:01)
[2018-11-25] MEDS: CYANOCOBALAMIN 500 MCG TAB PO (08:01)
[2018-11-25] MEDS: ASPIRIN 81 MG TAB PO (08:01)
[2018-11-25] MEDS: FLUTICASONE 0.05% 16 GM NAS SPRAY NASAL ×2 (08:02→20:09)
[2018-11-25] MEDS: METOPROLOL 100 MG TAB PO ×2 (08:02→20:10)
[2018-11-25] MEDS: ENOXAPARIN 40 MG/0.4 ML SYG SC (08:04)
[2018-11-25] MEDS: POTASSIUM CHLORIDE (SR) 20 MEQ TAB PO (12:32)
[2018-11-25] MEDS: FLUTICASONE/VILANTEROL 100-25 INH (12:33)
[2018-11-25] MEDS: DIGOXIN 500 MCG INJ IV (12:34)
[2018-11-25] MEDS: DIGOXIN 0.25 MG TAB PO (13:45)
[2018-11-25] MEDS: MONTELUKAST 10 MG TAB PO (20:09)
[2018-11-25] MEDS: AL HYDROX/MG HYDROX/SIMETH 30 ML CUP PO (20:09)
[2018-11-25] MEDS: BISACODYL (EC) 5 MG TAB PO (20:27)
[2018-11-25] MEDS: ONDANSETRON 4 MG INJ IV (21:17)
[2018-11-25] MEDS: DOCUSATE SODIUM 100 MG CAP PO (23:32)
[2018-11-25] MEDS: LORAZEPAM 2 MG INJ IV (23:32)
[2018-11-26] MEDS: PANTOPRAZOLE (EC) 40 MG TAB PO (06:07)
[2018-11-26 06:42] LABS: ANION GAP 8 (5-13); BLOOD UREA NITROGEN 30 mg/dl (7-20); CALCIUM 9.2 mg/dl (8.4-10.2); CARBON DIOXIDE 30 mmol/L (21-31); CHLORIDE 103 mmol/L (97-110); CREATININE 1.45 mg/dl (0.61-1.24); GLUCOSE 87 mg/dl (70-220); POTASSIUM 3.8 mmol/L (3.5-5.1); SODIUM 141 mmol/L (135-144)
[2018-11-26] MEDS: ASPIRIN 81 MG TAB PO (08:17)
[2018-11-26] MEDS: DOCUSATE SODIUM 100 MG CAP PO ×2 (08:17→21:00)
[2018-11-26] MEDS: POLYETHYLENE GLYCOL 17 GM PACKET PO (08:17)
[2018-11-26] MEDS: FERROUS SULFATE (EC) 325 MG TAB PO (08:17)
[2018-11-26] MEDS: FLUTICASONE/VILANTEROL 100-25 INH (08:17)
[2018-11-26] MEDS: CYANOCOBALAMIN 500 MCG TAB PO (08:17)
[2018-11-26] MEDS: FLUTICASONE 0.05% 16 GM NAS SPRAY NASAL ×2 (08:17→21:00)
[2018-11-26] MEDS: LORATADINE 10 MG TAB PO (08:17)
[2018-11-26] MEDS: FUROSEMIDE 40 MG INJ IV (08:18)
[2018-11-26] MEDS: METOPROLOL 100 MG TAB PO ×2 (08:18→21:01)
[2018-11-26] MEDS: ENOXAPARIN 40 MG/0.4 ML SYG SC (08:21)
[2018-11-26] MEDS: DIGOXIN 0.25 MG TAB PO (13:12)
[2018-11-26] MEDS: ACETAMINOPHEN 325 MG TAB PO (17:47)
[2018-11-26] MEDS: IBUPROFEN 600 MG TAB PO (19:43)
[2018-11-26] MEDS: MONTELUKAST 10 MG TAB PO (21:01)
[2018-11-27] MEDS: PANTOPRAZOLE (EC) 40 MG TAB PO (06:36)
[2018-11-27] MEDS: ASPIRIN 81 MG TAB PO (08:13)
[2018-11-27] MEDS: DOCUSATE SODIUM 100 MG CAP PO ×2 (08:13→20:51)
[2018-11-27] MEDS: FERROUS SULFATE (EC) 325 MG TAB PO (08:13)
[2018-11-27] MEDS: LORATADINE 10 MG TAB PO (08:13)
[2018-11-27] MEDS: CYANOCOBALAMIN 500 MCG TAB PO (08:13)
[2018-11-27] MEDS: ACETAMINOPHEN 325 MG TAB PO ×2 (08:13→17:31)
[2018-11-27] MEDS: METOPROLOL 100 MG TAB PO ×2 (08:14→20:51)
[2018-11-27] MEDS: POLYETHYLENE GLYCOL 17 GM PACKET PO (08:14)
[2018-11-27] MEDS: FUROSEMIDE 40 MG INJ IV (08:14)
[2018-11-27] MEDS: FLUTICASONE 0.05% 16 GM NAS SPRAY NASAL ×2 (08:17→20:51)
[2018-11-27] MEDS: FLUTICASONE/VILANTEROL 100-25 INH (08:18)
[2018-11-27] MEDS: ENOXAPARIN 40 MG/0.4 ML SYG SC (08:25)
[2018-11-27] MEDS: DIGOXIN 0.25 MG TAB PO (13:00)
[2018-11-27] MEDS: BISACODYL (EC) 5 MG TAB PO (13:01)
[2018-11-27] MEDS: IBUPROFEN 600 MG TAB PO (19:58)
[2018-11-27] MEDS: MONTELUKAST 10 MG TAB PO (20:51)
[2018-11-28] MEDS: PANTOPRAZOLE (EC) 40 MG TAB PO (06:05)
[2018-11-28] MEDS: ALBUTEROL/IPRATROPIUM (NEB) 3 ML AMP HHN (08:33)
[2018-11-28] MEDS: DOCUSATE SODIUM 100 MG CAP PO (09:27)
[2018-11-28] MEDS: FERROUS SULFATE (EC) 325 MG TAB PO (09:27)
[2018-11-28] MEDS: LORATADINE 10 MG TAB PO (09:27)
[2018-11-28] MEDS: POLYETHYLENE GLYCOL 17 GM PACKET PO (09:27)
[2018-11-28] MEDS: ASPIRIN 81 MG TAB PO (09:27)
[2018-11-28] MEDS: FUROSEMIDE 40 MG INJ IV (09:28)
[2018-11-28] MEDS: ENOXAPARIN 40 MG/0.4 ML SYG SC (09:30)
[2018-11-28] MEDS: ACETAMINOPHEN 325 MG TAB PO (09:43)
[2018-11-28] MEDS: FLUTICASONE/VILANTEROL 100-25 INH (12:23)
[2018-11-28] MEDS: FLUTICASONE 0.05% 16 GM NAS SPRAY NASAL (12:23)
[2018-11-28] MEDS: IBUPROFEN 600 MG TAB PO (12:26)
[2018-11-28] MEDS: METOPROLOL 100 MG TAB PO (12:31)
[2018-11-28] MEDS: CYANOCOBALAMIN 500 MCG TAB PO (14:40)
[2018-11-28] MEDS: DIGOXIN 0.25 MG TAB PO (15:07)
== END 2018-11-28 15:20 | DRG 292 ==
LOC: MS1 11-28 00:30 → E/R 04:57 → 6WM 06:02
DX: I11.0 Hypertensive heart disease with heart failure (principal); N17.9 Acute kidney failure, unspecified; I50.43 Acute on chronic combined systolic (congestive) and diastolic (congestive) heart failure; E53.8 Deficiency of other specified B group vitamins; J44.9 Chronic obstructive pulmonary disease, unspecified; F03.90 Unspecified dementia, unspecified severity, without behavioral disturbance, psychotic disturbance, mood disturbance, and anxiety; Z95.0 Presence of cardiac pacemaker; R00.0 Tachycardia, unspecified
CPT/HCPCS: 36415; 71045; 80048; 80053; 80061; 80076; 82550; 82553; 83036; 83735; 83880; 84484; 85025; 85610; 85730; 93005; 94640; 94664; 97116; 97161; 97530; 99285-25; G0378

== ENCOUNTER 2019-02-03 18:07 | Inpatient (IN) | payer MEDICARE, OTHER ==
[2019-02-03] MEDS: SODIUM CHLORIDE 0.9% 1L BAG IV* (19:07)
[2019-02-03 19:14] LABS: ABNORMAL IP MESSAGE 1; HEMOGLOBIN 13.9 g/dl (14.0-18.0); MEAN CORPUSCULAR HEMOGLOBIN 33.7 pg (29.0-33.0); MEAN CORPUSCULAR HGB CONC 33.9 g/dl (32.0-37.0); MEAN CORPUSCULAR VOLUME 99.5 fl (82.0-101.0); MEAN PLATELET VOLUME 12.6 fl (7.4-10.4); PLATELET COUNT 83 10^3/UL (140-415); POSITIVE DIFF @See below; RED BLOOD COUNT 4.12 10^6/ul (4.70-6.10); RED CELL DISTRIBUTION WIDTH 12.4 % (11.5-14.5)
[2019-02-03 19:14] LABS: WHITE BLOOD COUNT 23.6 10^3/ul (4.8-10.8)
[2019-02-03] MEDS: IPRATROPIUM (NEB) 0.5 MG/2.5 ML AMP INH (19:14)
[2019-02-03] MEDS: ALBUTEROL 0.5% (NEB) 2.5 MG/0.5 ML AMP INH (19:14)
[2019-02-03 19:18] LABS: ADD MAN DIFF? YES
[2019-02-03] MEDS: CEFTRIAXONE 1 GM/50 ML (PMX) 50 ML IVPB (19:23)
[2019-02-03] MEDS: METHYLPREDNISOLONE 125 MG INJ IV (19:23)
[2019-02-03 19:31] LABS: INR 0.97
[2019-02-03 19:32] LABS: PARTIAL THROMBOPLASTIN TIME 25.8 Sec (23.0-35.0)
[2019-02-03 19:39] LABS: BAND NEUTROPHILS #M 0.7 10^3/ul (0.0-0.6); BAND NEUTROPHILS % (M) 3 % (0-4); GIANT THROMBO% (M) 1 % (0-0); LYMPHOCYTES #M 1.1 10^3/ul (0.8-2.9); LYMPHOCYTES % (M) 5 % (15-51); MONOCYTE #M 1.4 10^3/ul (0.3-0.9); MONOCYTES % (M) 6 % (0-11); PLATELET ESTIMATE DECREASED; SEG NEUT #M 20.5 10^3/ul (1.6-7.5); SEGMENTED NEUTROPHILS (M) % 86 % (39-77); SMUDGE%M 2 % (0-0)
[2019-02-03 19:44] LABS: ALANINE AMINOTRANSFERASE 31 IU/L (13-69); ALBUMIN 3.7 g/dl (3.3-4.9); ALKALINE PHOSPHATASE 61 IU/L (42-121); AMYLASE 94 U/L (11-123); ASPARTATE AMINO TRANSFERASE 41 IU/L (15-46); B-TYPE NATRIURETIC PEPTIDE 15400 PG/ML (0-450); BILIRUBIN,INDIRECT 1.1 mg/dl (0-1.1); BILIRUBIN,TOTAL 1.1 mg/dl (0.2-1.3); BLOOD UREA NITROGEN 112 mg/dl (7-20); CALCIUM 8.4 mg/dl (8.4-10.2); CHLORIDE 84 mmol/L (97-110); CREATININE 2.56 mg/dl (0.61-1.24); GLUCOSE 160 mg/dl (70-220); LIPASE 38 U/L (23-300); POTASSIUM 3.5 mmol/L (3.5-5.1); SODIUM 133 mmol/L (135-144); TOTAL PROTEIN 7.4 g/dl (6.1-8.1)
[2019-02-03 19:51] LABS: ANION GAP 9 (5-13)
[2019-02-03 19:53] LABS: CARBON DIOXIDE 40 mmol/L (21-31)
[2019-02-03 19:54] LABS: TROPONIN-I 0.311 ng/ml (0.000-0.120)
[2019-02-03] MEDS: ASPIRIN 325 MG TAB PO (20:03)
[2019-02-03 21:29] LABS: AADO2 Arterial 90.2 mmHg (7.0-24.0); Allen Test ACCEPTAB; Arterial Base Excess 9.5 mmol/L (-3.0-3); Arterial Blood Gas Oxygen Sat 98.9 mmHG (95.0-100.0); Arterial COHb 0.7 % (0.0-3.0); Arterial HCO3 34.3 mmol/L (22.0-26.0); Arterial MetHb 0.2 % (0.0-1.5); Arterial pCO2 46.7 mmhg (35-45); Blood Gas IEPAP 15/5; MODE MASK - BIPAP; Site Left Radial
[2019-02-03] MEDS ORDERED: ACETAMINOPHEN 325 MG TAB PO (21:30)
[2019-02-03] MEDS ORDERED: ONDANSETRON 4 MG INJ IV ×2 (21:30→22:00)
[2019-02-03] MEDS ORDERED: NACL 0.9% 3 ML SYG IV (22:00)
[2019-02-03] MEDS ORDERED: ALBUTEROL HFA 8 GM INHALER INH (22:00)
[2019-02-03 22:39] LABS: ADD UMIC YES; UR ASCORBIC ACID NEGATIVE (NEGATIVE); UR BILIRUBIN (Dip) NEGATIVE (NEGATIVE); UR BLOOD (Dip) 1+ mg/dL (NEGATIVE); UR CLARITY CLEAR (CLEAR); UR COLOR YELLOW (YELLOW); UR GLUCOSE (Dip) NEGATIVE (NEGATIVE); UR KETONES (Dip) TRACE mg/dL (NEGATIVE); UR LEUKOCYTE ESTERASE (Dip) NEGATIVE Leu/ul (NEGATIVE); UR NITRITE (Dip) NEGATIVE (NEGATIVE); UR RBC 2 /HPF (0-5); UR SPECIFIC GRAVITY (Dip) 1.013 (1.003-1.030); UR TOTAL PROTEIN (Dip) NEGATIVE (NEGATIVE); UR UROBILINOGEN (Dip) NEGATIVE (NEGATIVE); UR WBC 2 /HPF (0-5)
[2019-02-03] MEDS: LORAZEPAM 2 MG INJ IV ×2 (22:44→22:45)
[2019-02-04 04:27] LABS: ADD MAN DIFF? NO
[2019-02-04 04:28] LABS: ABNORMAL IP MESSAGE 1; BASOPHILS % 0.1 % (0.0-2.0); HEMATOCRIT 37.8 % (42.0-52.0); HEMOGLOBIN 12.7 g/dl (14.0-18.0); LYMPHOCYTES # 0.4 10^3/ul (0.8-2.9); LYMPHOCYTES % 2.2 % (15.0-51.0); MEAN CORPUSCULAR HEMOGLOBIN 33.6 pg (29.0-33.0); MEAN CORPUSCULAR HGB CONC 33.6 g/dl (32.0-37.0); MEAN PLATELET VOLUME 12.1 fl (7.4-10.4); MONOCYTE # 0.2 10^3/ul (0.3-0.9); NEUTROPHIL # 17.6 10^3/ul (1.6-7.5); NEUTROPHILS % 96.2 % (39.0-77.0); PLATELET COUNT 72 10^3/UL (140-415); POSITIVE DIFF @See below; RED BLOOD COUNT 3.78 10^6/ul (4.70-6.10); RED CELL DISTRIBUTION WIDTH 12.4 % (11.5-14.5)
[2019-02-04 04:28] LABS: WHITE BLOOD COUNT 18.3 10^3/ul (4.8-10.8)
[2019-02-04 04:43] LABS: HEMOGLOBIN A1C 4.9 % (0-5.9)
[2019-02-04 04:46] LABS: ALANINE AMINOTRANSFERASE 26 IU/L (13-69); ALBUMIN 3.4 g/dl (3.3-4.9); ALBUMIN/GLOBULIN RATIO 1.06; ALKALINE PHOSPHATASE 49 IU/L (42-121); ANION GAP 9 (5-13); ASPARTATE AMINO TRANSFERASE 35 IU/L (15-46); BILIRUBIN,INDIRECT 0.7 mg/dl (0-1.1); BILIRUBIN,TOTAL 0.7 mg/dl (0.2-1.3); BLOOD UREA NITROGEN 99 mg/dl (7-20); CARBON DIOXIDE 39 mmol/L (21-31); CHLORIDE 88 mmol/L (97-110); GLUCOSE 170 mg/dl (70-220); MAGNESIUM 4.8 mg/dl (1.7-2.5); PHOSPHORUS 4.2 mg/dl (2.5-4.9); POTASSIUM 3.5 mmol/L (3.5-5.1); SODIUM 136 mmol/L (135-144); TOTAL PROTEIN 6.6 g/dl (6.1-8.1)
[2019-02-04 05:07] LABS: TROPONIN-I 0.254 ng/ml (0.000-0.120)
[2019-02-04 05:16] LABS: THYROID STIMULATING HORMONE 0.247 MIU/L (0.465-4.680)
[2019-02-04] MEDS: HALOPERIDOL 5 MG INJ IM ×2 (05:49→08:59)
[2019-02-04] MEDS: FUROSEMIDE 20 MG INJ IV (05:52)
[2019-02-04] MEDS ORDERED: HALOPERIDOL 5 MG INJ IV (09:00)
[2019-02-04] MEDS ORDERED: FUROSEMIDE 20 MG TAB PO (09:00)
[2019-02-04 11:20] LABS: TROPONIN-I 0.246 ng/ml (0.000-0.120)
[2019-02-04] MEDS: DOCUSATE SODIUM 100 MG CAP PO (13:15)
[2019-02-04] MEDS: NICOTINE (14 MG/24 HR) PATCH TRANSDERM (13:15)
[2019-02-04] MEDS: ASPIRIN (EC) 81 MG TAB PO (13:15)
[2019-02-04] MEDS: LORATADINE 10 MG TAB PO (13:15)
[2019-02-04] MEDS: METOPROLOL 50 MG TAB PO ×2 (13:16→21:00)
[2019-02-04] MEDS: FLUTICASONE 0.05% 16 GM NAS SPRAY NASAL ×2 (13:17→21:52)
[2019-02-04] MEDS: SOD CHLORIDE 0.9% 500 ML IV (13:30)
[2019-02-04] MEDS: ENOXAPARIN 30 MG/0.3 ML SYG SC (13:51)
[2019-02-04] MEDS: PIPER-TAZO 3.375 GM IV (PMX) 100 ML IVPB ×2 (15:37→22:04)
[2019-02-04] MEDS: LEVALBUTEROL (NEB) 0.63 MG/3 ML AMP HHN ×2 (16:36→20:00)
[2019-02-04] MEDS: ACETAMINOPHEN 325 MG TAB PO (20:20)
[2019-02-05] MEDS: HYDROCODONE/APAP (5/325) TAB PO (00:43)
[2019-02-05] MEDS: LEVALBUTEROL (NEB) 0.63 MG/3 ML AMP HHN ×4 (01:05→20:49)
[2019-02-05] MEDS ORDERED: HALOPERIDOL 5 MG INJ IM (03:30)
[2019-02-05] MEDS: HALOPERIDOL 5 MG INJ IM (03:56)
[2019-02-05] MEDS: PIPER-TAZO 3.375 GM IV (PMX) 100 ML IVPB ×3 (05:19→21:59)
[2019-02-05 06:59] LABS: ADD MAN DIFF? NO
[2019-02-05 07:11] LABS: ABNORMAL IP MESSAGE 1; BASOPHILS % 0.1 % (0.0-2.0); EOSINOPHILS % 0.1 % (0.0-7.0); HEMATOCRIT 34.1 % (42.0-52.0); HEMOGLOBIN 11.7 g/dl (14.0-18.0); LYMPHOCYTES # 1.2 10^3/ul (0.8-2.9); LYMPHOCYTES % 7.7 % (15.0-51.0); MEAN CORPUSCULAR HEMOGLOBIN 34.2 pg (29.0-33.0); MEAN CORPUSCULAR HGB CONC 34.3 g/dl (32.0-37.0); MEAN CORPUSCULAR VOLUME 99.7 fl (82.0-101.0); MEAN PLATELET VOLUME 13.4 fl (7.4-10.4); MONOCYTE # 1.1 10^3/ul (0.3-0.9); MONOCYTES % 6.9 % (0.0-11.0); NEUTROPHIL # 13.6 10^3/ul (1.6-7.5); NEUTROPHILS % 84.7 % (39.0-77.0); PLATELET COUNT 76 10^3/UL (140-415); POSITIVE DIFF @See below; RED BLOOD COUNT 3.42 10^6/ul (4.70-6.10); RED CELL DISTRIBUTION WIDTH 12.6 % (11.5-14.5)
[2019-02-05 07:33] LABS: ANION GAP 10 (5-13); BLOOD UREA NITROGEN 92 mg/dl (7-20); CALCIUM 7.5 mg/dl (8.4-10.2); CARBON DIOXIDE 35 mmol/L (21-31); CHLORIDE 88 mmol/L (97-110); CREATININE 2.08 mg/dl (0.61-1.24); GLUCOSE 103 mg/dl (70-220); SODIUM 133 mmol/L (135-144)
[2019-02-05 07:56] LABS: POTASSIUM 2.7 mmol/L (3.5-5.1)
[2019-02-05] MEDS: LORATADINE 10 MG TAB PO (08:16)
[2019-02-05] MEDS: ASPIRIN (EC) 81 MG TAB PO (08:16)
[2019-02-05] MEDS: NICOTINE (14 MG/24 HR) PATCH TRANSDERM (08:17)
[2019-02-05] MEDS: POTASSIUM CHLORIDE 20 MEQ POWDER FOR ORAL SOLN PO (08:17)
[2019-02-05] MEDS: FLUTICASONE 0.05% 16 GM NAS SPRAY NASAL ×2 (08:18→21:59)
[2019-02-05] MEDS: METOPROLOL 50 MG TAB PO (08:18)
[2019-02-05] MEDS: ENOXAPARIN 30 MG/0.3 ML SYG SC (08:20)
[2019-02-05] MEDS: SOD CHLORIDE 0.9% 500 ML IV (11:14)
[2019-02-05 13:28] LABS: ANION GAP 12 (5-13); BLOOD UREA NITROGEN 86 mg/dl (7-20); CALCIUM 7.5 mg/dl (8.4-10.2); CARBON DIOXIDE 30 mmol/L (21-31); CHLORIDE 91 mmol/L (97-110); CREATININE 1.89 mg/dl (0.61-1.24); GLUCOSE 160 mg/dl (70-220); POTASSIUM 3.3 mmol/L (3.5-5.1); SODIUM 133 mmol/L (135-144)
[2019-02-05] MEDS: POTASSIUM CHLORIDE 100 ML IVPB (18:05)
[2019-02-05] MEDS: LORAZEPAM 2 MG INJ IV (22:41)
[2019-02-05 23:34] LABS: ADD UMIC YES; UR ASCORBIC ACID NEGATIVE (NEGATIVE); UR BACTERIA FEW /HPF (NONE SEEN); UR BILIRUBIN (Dip) NEGATIVE (NEGATIVE); UR BLOOD (Dip) 3+ mg/dL (NEGATIVE); UR CLARITY SLIGHTLY CLOUDY (CLEAR); UR COLOR YELLOW (YELLOW); UR GLUCOSE (Dip) NEGATIVE (NEGATIVE); UR KETONES (Dip) NEGATIVE (NEGATIVE); UR LEUKOCYTE ESTERASE (Dip) 3+ Leu/ul (NEGATIVE); UR MUCUS FEW /HPF (NONE SEEN); UR NITRITE (Dip) NEGATIVE (NEGATIVE); UR RBC > 182 /HPF (0-5); UR SPECIFIC GRAVITY (Dip) 1.014 (1.003-1.030); UR TOTAL PROTEIN (Dip) 2+ mg/dl (NEGATIVE); UR UROBILINOGEN (Dip) NEGATIVE (NEGATIVE); UR WBC 20 /HPF (0-5)
[2019-02-05 23:36] LABS: SODIUM,URINE RANDOM 18 mmol/L (30-90)
[2019-02-05 23:36] LABS: CREATININE,URINE RANDOM 76.37 mg/dl (20-370)
[2019-02-06] MEDS: LEVALBUTEROL (NEB) 0.63 MG/3 ML AMP HHN ×4 (02:21→20:13)
[2019-02-06] MEDS: PIPER-TAZO 3.375 GM IV (PMX) 100 ML IVPB ×3 (05:55→22:04)
[2019-02-06 06:10] LABS: ADD MAN DIFF? NO
[2019-02-06 06:15] LABS: ABNORMAL IP MESSAGE 1; BASOPHILS % 0.1 % (0.0-2.0); EOSINOPHILS % 0.3 % (0.0-7.0); HEMATOCRIT 33.3 % (42.0-52.0); HEMOGLOBIN 11.3 g/dl (14.0-18.0); LYMPHOCYTES # 1.6 10^3/ul (0.8-2.9); LYMPHOCYTES % 11.7 % (15.0-51.0); MEAN CORPUSCULAR HEMOGLOBIN 33.5 pg (29.0-33.0); MEAN CORPUSCULAR HGB CONC 33.9 g/dl (32.0-37.0); MEAN CORPUSCULAR VOLUME 98.8 fl (82.0-101.0); MEAN PLATELET VOLUME 13.1 fl (7.4-10.4); MONOCYTE # 1.3 10^3/ul (0.3-0.9); MONOCYTES % 9.7 % (0.0-11.0); NEUTROPHIL # 10.3 10^3/ul (1.6-7.5); NEUTROPHILS % 77.7 % (39.0-77.0); PLATELET COUNT 93 10^3/UL (140-415); POSITIVE DIFF @See below; RED BLOOD COUNT 3.37 10^6/ul (4.70-6.10); RED CELL DISTRIBUTION WIDTH 12.7 % (11.5-14.5)
[2019-02-06 06:15] LABS: WHITE BLOOD COUNT 13.3 10^3/ul (4.8-10.8)
[2019-02-06 06:37] LABS: ALANINE AMINOTRANSFERASE 34 IU/L (13-69); ALBUMIN 3.1 g/dl (3.3-4.9); ALBUMIN/GLOBULIN RATIO 0.93; ALKALINE PHOSPHATASE 50 IU/L (42-121); ANION GAP 8 (5-13); ASPARTATE AMINO TRANSFERASE 61 IU/L (15-46); BLOOD UREA NITROGEN 78 mg/dl (7-20); CALCIUM 7.9 mg/dl (8.4-10.2); CARBON DIOXIDE 33 mmol/L (21-31); CHLORIDE 96 mmol/L (97-110); CREATININE 1.75 mg/dl (0.61-1.24); GLUCOSE 108 mg/dl (70-220); POTASSIUM 3.2 mmol/L (3.5-5.1); SODIUM 137 mmol/L (135-144); TOTAL PROTEIN 6.4 g/dl (6.1-8.1)
[2019-02-06 06:46] LABS: MAGNESIUM 4.1 mg/dl (1.7-2.5)
[2019-02-06 06:46] LABS: PHOSPHORUS 2.8 mg/dl (2.5-4.9)
[2019-02-06] MEDS: NICOTINE (14 MG/24 HR) PATCH TRANSDERM (10:10)
[2019-02-06] MEDS: FLUTICASONE 0.05% 16 GM NAS SPRAY NASAL ×2 (10:10→20:31)
[2019-02-06] MEDS: POTASSIUM CHLORIDE 100 ML IVPB ×2 (10:10→13:10)
[2019-02-06] MEDS: CYANOCOBALAMIN 500 MCG TAB PO (10:11)
[2019-02-06] MEDS: FERROUS SULFATE (EC) 325 MG TAB PO (10:11)
[2019-02-06] MEDS: SOD CHLORIDE 0.9% 1,000 ML IV (10:25)
[2019-02-07] MEDS: LEVALBUTEROL (NEB) 0.63 MG/3 ML AMP HHN ×4 (01:56→19:50)
[2019-02-07] MEDS: PIPER-TAZO 3.375 GM IV (PMX) 100 ML IVPB ×3 (05:32→21:52)
[2019-02-07 06:43] LABS: ADD MAN DIFF? NO
[2019-02-07 06:53] LABS: ABNORMAL IP MESSAGE 1; BASOPHILS % 0.1 % (0.0-2.0); EOSINOPHILS # 0.1 10^3/ul (0.0-0.5); HEMATOCRIT 33.6 % (42.0-52.0); HEMOGLOBIN 11.3 g/dl (14.0-18.0); LYMPHOCYTES # 0.9 10^3/ul (0.8-2.9); MEAN CORPUSCULAR HEMOGLOBIN 33.3 pg (29.0-33.0); MEAN CORPUSCULAR HGB CONC 33.6 g/dl (32.0-37.0); MEAN CORPUSCULAR VOLUME 99.1 fl (82.0-101.0); MEAN PLATELET VOLUME 12.4 fl (7.4-10.4); MONOCYTE # 1.2 10^3/ul (0.3-0.9); MONOCYTES % 9.7 % (0.0-11.0); NEUTROPHIL # 10.2 10^3/ul (1.6-7.5); NEUTROPHILS % 81.6 % (39.0-77.0); PLATELET COUNT 97 10^3/UL (140-415); POSITIVE DIFF @See below; RED BLOOD COUNT 3.39 10^6/ul (4.70-6.10); RED CELL DISTRIBUTION WIDTH 12.7 % (11.5-14.5)
[2019-02-07 06:53] LABS: WHITE BLOOD COUNT 12.5 10^3/ul (4.8-10.8)
[2019-02-07 07:26] LABS: ANION GAP 5 (5-13); BLOOD UREA NITROGEN 47 mg/dl (7-20); CALCIUM 7.9 mg/dl (8.4-10.2); CARBON DIOXIDE 33 mmol/L (21-31); CHLORIDE 102 mmol/L (97-110); CREATININE 1.31 mg/dl (0.61-1.24); GLUCOSE 131 mg/dl (70-220); MAGNESIUM 3.2 mg/dl (1.7-2.5); PHOSPHORUS 2.3 mg/dl (2.5-4.9); POTASSIUM 3.3 mmol/L (3.5-5.1); SODIUM 140 mmol/L (135-144)
[2019-02-07] MEDS: CYANOCOBALAMIN 500 MCG TAB PO (09:09)
[2019-02-07] MEDS: FLUTICASONE 0.05% 16 GM NAS SPRAY NASAL ×2 (09:09→21:52)
[2019-02-07] MEDS: NICOTINE (14 MG/24 HR) PATCH TRANSDERM (09:09)
[2019-02-07] MEDS: FERROUS SULFATE (EC) 325 MG TAB PO (09:09)
[2019-02-07] MEDS: DOCUSATE SODIUM 100 MG CAP PO (09:10)
[2019-02-07] MEDS: SOD CHLORIDE 0.9% 1,000 ML IV (09:10)
[2019-02-07] MEDS: POTASSIUM CHLORIDE (SR) 20 MEQ TAB PO (09:10)
[2019-02-07] MEDS: SENNA TAB PO ×2 (11:00→12:37)
[2019-02-07] MEDS: BISACODYL (EC) 5 MG TAB PO (12:36)
[2019-02-07] MEDS: POTASSIUM PHOSPHATE 30 MM in SOD CHLORIDE 0.9% 250 ML IVPB (12:36)
[2019-02-07 14:18] LABS: FOLATE 9.2 ng/ml (2.8-20.0)
[2019-02-07 15:47] LABS: CREATININE, RANDOM URINE 78 mg/dL (20-320); MICROALBUMIN 19.7 mg/dL; MICROALBUMIN/CREATININE RATIO 253 (<30)
[2019-02-07] MEDS: QUETIAPINE 25 MG TAB PO (21:52)
[2019-02-08] MEDS: LEVALBUTEROL (NEB) 0.63 MG/3 ML AMP HHN ×4 (01:40→19:31)
[2019-02-08] MEDS: PIPER-TAZO 3.375 GM IV (PMX) 100 ML IVPB ×3 (05:14→21:37)
[2019-02-08 06:22] LABS: ADD MAN DIFF? NO
[2019-02-08 06:25] LABS: BASOPHILS % 0.1 % (0.0-2.0); EOSINOPHILS # 0.2 10^3/ul (0.0-0.5); EOSINOPHILS % 1.3 % (0.0-7.0); HEMATOCRIT 36.1 % (42.0-52.0); HEMOGLOBIN 11.8 g/dl (14.0-18.0); LYMPHOCYTES % 7.5 % (15.0-51.0); MEAN CORPUSCULAR HEMOGLOBIN 33.7 pg (29.0-33.0); MEAN CORPUSCULAR HGB CONC 32.7 g/dl (32.0-37.0); MEAN CORPUSCULAR VOLUME 103.1 fl (82.0-101.0); MEAN PLATELET VOLUME 12.4 fl (7.4-10.4); MONOCYTE # 1.2 10^3/ul (0.3-0.9); MONOCYTES % 8.6 % (0.0-11.0); NEUTROPHILS % 81.9 % (39.0-77.0); PLATELET COUNT 114 10^3/UL (140-415)
[2019-02-08 06:25] LABS: WHITE BLOOD COUNT 13.4 10^3/ul (4.8-10.8)
[2019-02-08 06:44] LABS: ANION GAP 3 (5-13); BLOOD UREA NITROGEN 26 mg/dl (7-20); CALCIUM 7.9 mg/dl (8.4-10.2); CARBON DIOXIDE 35 mmol/L (21-31); CHLORIDE 105 mmol/L (97-110); CREATININE 1.23 mg/dl (0.61-1.24); GLUCOSE 133 mg/dl (70-220); POTASSIUM 3.4 mmol/L (3.5-5.1); SODIUM 143 mmol/L (135-144)
[2019-02-08 06:48] LABS: MAGNESIUM 2.9 mg/dl (1.7-2.5)
[2019-02-08 06:48] LABS: PHOSPHORUS 2.8 mg/dl (2.5-4.9)
[2019-02-08] MEDS: CYANOCOBALAMIN 500 MCG TAB PO (09:25)
[2019-02-08] MEDS: SENNA TAB PO ×2 (09:25→20:24)
[2019-02-08] MEDS: FERROUS SULFATE (EC) 325 MG TAB PO (09:25)
[2019-02-08] MEDS: FLUTICASONE 0.05% 16 GM NAS SPRAY NASAL ×2 (09:25→20:23)
[2019-02-08] MEDS: NICOTINE (14 MG/24 HR) PATCH TRANSDERM (09:25)
[2019-02-08] MEDS: BISACODYL (EC) 5 MG TAB PO (09:25)
[2019-02-08] MEDS: POTASSIUM CHLORIDE (SR) 20 MEQ TAB PO (09:25)
[2019-02-08] MEDS: ACETAMINOPHEN 325 MG TAB PO ×2 (09:26→22:46)
[2019-02-08] MEDS: FAMOTIDINE 20 MG TAB PO (20:24)
[2019-02-09] MEDS: LEVALBUTEROL (NEB) 0.63 MG/3 ML AMP HHN ×3 (01:24→13:12)
[2019-02-09] MEDS: PIPER-TAZO 3.375 GM IV (PMX) 100 ML IVPB (05:50)
[2019-02-09 06:13] LABS: ADD MAN DIFF? NO
[2019-02-09 06:21] LABS: WHITE BLOOD COUNT 14.5 10^3/ul (4.8-10.8)
[2019-02-09 06:21] LABS: BASOPHILS % 0.3 % (0.0-2.0); EOSINOPHILS # 0.3 10^3/ul (0.0-0.5); EOSINOPHILS % 1.9 % (0.0-7.0); HEMOGLOBIN 11.4 g/dl (14.0-18.0); LYMPHOCYTES % 13.6 % (15.0-51.0); MEAN CORPUSCULAR HEMOGLOBIN 33.7 pg (29.0-33.0); MEAN CORPUSCULAR HGB CONC 32.6 g/dl (32.0-37.0); MEAN CORPUSCULAR VOLUME 103.6 fl (82.0-101.0); MEAN PLATELET VOLUME 12.4 fl (7.4-10.4); MONOCYTE # 1.1 10^3/ul (0.3-0.9); MONOCYTES % 7.9 % (0.0-11.0); NEUTROPHIL # 10.9 10^3/ul (1.6-7.5); NEUTROPHILS % 75.7 % (39.0-77.0); PLATELET COUNT 129 10^3/UL (140-415); RED BLOOD COUNT 3.38 10^6/ul (4.70-6.10); RED CELL DISTRIBUTION WIDTH 13.1 % (11.5-14.5)
[2019-02-09 07:10] LABS: ANION GAP 5 (5-13); BLOOD UREA NITROGEN 25 mg/dl (7-20); CALCIUM 8.1 mg/dl (8.4-10.2); CARBON DIOXIDE 32 mmol/L (21-31); CHLORIDE 105 mmol/L (97-110); CREATININE 1.28 mg/dl (0.61-1.24); GLUCOSE 103 mg/dl (70-220); MAGNESIUM 2.9 mg/dl (1.7-2.5); PHOSPHORUS 2.8 mg/dl (2.5-4.9); POTASSIUM 3.7 mmol/L (3.5-5.1); SODIUM 142 mmol/L (135-144)
[2019-02-09 07:10] LABS: FREE T4 (FREE THYROXINE) 2.12 ng/dl (0.85-1.93)
[2019-02-09] MEDS: SENNA TAB PO (08:30)
[2019-02-09] MEDS: CYANOCOBALAMIN 500 MCG TAB PO (08:30)
[2019-02-09] MEDS: FLUTICASONE 0.05% 16 GM NAS SPRAY NASAL ×2 (08:31→21:27)
[2019-02-09] MEDS: FERROUS SULFATE (EC) 325 MG TAB PO (08:31)
[2019-02-09] MEDS: NICOTINE (14 MG/24 HR) PATCH TRANSDERM (08:32)
[2019-02-09 08:45] LABS: TRIIODOTHYRONINE 0.65 ng/ml (0.97-1.69)
[2019-02-09] MEDS: LACTULOSE 30ML CUP PO ×2 (10:00→21:34)
[2019-02-09] MEDS ORDERED: BISACODYL 10 MG SUPP PR (10:00)
[2019-02-09] MEDS: FAMOTIDINE 20 MG TAB PO (21:34)
[2019-02-09] MEDS: ACETAMINOPHEN 325 MG TAB PO (21:55)
[2019-02-10] MEDS: LEVOFLOXACIN 750 MG TABLET PO (05:12)
[2019-02-10 06:10] LABS: ADD MAN DIFF? NO
[2019-02-10 06:32] LABS: BASOPHILS % 0.2 % (0.0-2.0); EOSINOPHILS # 0.3 10^3/ul (0.0-0.5); EOSINOPHILS % 2.6 % (0.0-7.0); HEMATOCRIT 31.1 % (42.0-52.0); HEMOGLOBIN 10.1 g/dl (14.0-18.0); LYMPHOCYTES # 1.7 10^3/ul (0.8-2.9); LYMPHOCYTES % 14.8 % (15.0-51.0); MEAN CORPUSCULAR HEMOGLOBIN 33.2 pg (29.0-33.0); MEAN CORPUSCULAR HGB CONC 32.5 g/dl (32.0-37.0); MEAN CORPUSCULAR VOLUME 102.3 fl (82.0-101.0); MEAN PLATELET VOLUME 12.3 fl (7.4-10.4); MONOCYTE # 1.1 10^3/ul (0.3-0.9); MONOCYTES % 9.2 % (0.0-11.0); NEUTROPHIL # 8.5 10^3/ul (1.6-7.5); NEUTROPHILS % 72.7 % (39.0-77.0); PLATELET COUNT 138 10^3/UL (140-415); RED BLOOD COUNT 3.04 10^6/ul (4.70-6.10); RED CELL DISTRIBUTION WIDTH 13.2 % (11.5-14.5)
[2019-02-10 06:32] LABS: WHITE BLOOD COUNT 11.7 10^3/ul (4.8-10.8)
[2019-02-10 06:57] LABS: LACTIC ACID 1.3 mmol/L (0.5-2.0)
[2019-02-10 07:33] LABS: ALANINE AMINOTRANSFERASE 34 IU/L (13-69); ALBUMIN 2.6 g/dl (3.3-4.9); ALBUMIN/GLOBULIN RATIO 0.86; ALKALINE PHOSPHATASE 41 IU/L (42-121); ANION GAP 4 (5-13); ASPARTATE AMINO TRANSFERASE 31 IU/L (15-46); BILIRUBIN,INDIRECT 0.9 mg/dl (0-1.1); BILIRUBIN,TOTAL 0.9 mg/dl (0.2-1.3); BLOOD UREA NITROGEN 27 mg/dl (7-20); CALCIUM 8.1 mg/dl (8.4-10.2); CARBON DIOXIDE 31 mmol/L (21-31); CHLORIDE 101 mmol/L (97-110); CREATININE 1.33 mg/dl (0.61-1.24); GLUCOSE 86 mg/dl (70-220); POTASSIUM 3.9 mmol/L (3.5-5.1); SODIUM 136 mmol/L (135-144); TOTAL PROTEIN 5.6 g/dl (6.1-8.1)
[2019-02-10] MEDS: FLUTICASONE 0.05% 16 GM NAS SPRAY NASAL ×2 (08:26→20:48)
[2019-02-10] MEDS: CYANOCOBALAMIN 500 MCG TAB PO (08:26)
[2019-02-10] MEDS: ASPIRIN (EC) 81 MG TAB PO (08:26)
[2019-02-10] MEDS: SENNA/DOCUSATE NA (8.6MG/50MG) TAB PO (08:26)
[2019-02-10] MEDS: NICOTINE (14 MG/24 HR) PATCH TRANSDERM (08:28)
[2019-02-10] MEDS: LACTULOSE 30ML CUP PO (08:30)
[2019-02-10] MEDS: ACETAMINOPHEN 325 MG TAB PO ×2 (13:40→20:49)
[2019-02-10] MEDS: FAMOTIDINE 20 MG TAB PO (20:48)
[2019-02-10] MEDS: GUAIFENESIN/DM 5ML CUP PO (20:49)
[2019-02-11 06:07] LABS: ADD MAN DIFF? NO
[2019-02-11] MEDS: LEVOFLOXACIN 750 MG TABLET PO (06:18)
[2019-02-11 06:19] LABS: BASOPHILS % 0.2 % (0.0-2.0); EOSINOPHILS # 0.2 10^3/ul (0.0-0.5); EOSINOPHILS % 1.5 % (0.0-7.0); HEMATOCRIT 31.8 % (42.0-52.0); HEMOGLOBIN 10.5 g/dl (14.0-18.0); LYMPHOCYTES # 1.6 10^3/ul (0.8-2.9); LYMPHOCYTES % 11.7 % (15.0-51.0); MEAN CORPUSCULAR HEMOGLOBIN 33.9 pg (29.0-33.0); MEAN CORPUSCULAR VOLUME 102.6 fl (82.0-101.0); MEAN PLATELET VOLUME 12.2 fl (7.4-10.4); MONOCYTE # 0.7 10^3/ul (0.3-0.9); NEUTROPHIL # 11.3 10^3/ul (1.6-7.5); PLATELET COUNT 150 10^3/UL (140-415); RED CELL DISTRIBUTION WIDTH 13.2 % (11.5-14.5)
[2019-02-11 06:56] LABS: ANION GAP 3 (5-13); BLOOD UREA NITROGEN 30 mg/dl (7-20); CALCIUM 8.5 mg/dl (8.4-10.2); CARBON DIOXIDE 32 mmol/L (21-31); CHLORIDE 100 mmol/L (97-110); CREATININE 1.39 mg/dl (0.61-1.24); GLUCOSE 98 mg/dl (70-220); MAGNESIUM 2.3 mg/dl (1.7-2.5); PHOSPHORUS 3.2 mg/dl (2.5-4.9); POTASSIUM 4.3 mmol/L (3.5-5.1); SODIUM 135 mmol/L (135-144)
[2019-02-11] MEDS: SENNA/DOCUSATE NA (8.6MG/50MG) TAB PO (09:34)
[2019-02-11] MEDS: ASPIRIN (EC) 81 MG TAB PO (09:34)
[2019-02-11] MEDS: NICOTINE (14 MG/24 HR) PATCH TRANSDERM (09:34)
[2019-02-11] MEDS: FLUTICASONE 0.05% 16 GM NAS SPRAY NASAL ×2 (09:34→21:37)
[2019-02-11] MEDS: CYANOCOBALAMIN 500 MCG TAB PO (09:34)
[2019-02-11] MEDS: ACETAMINOPHEN 325 MG TAB PO (18:33)
[2019-02-11] MEDS: GUAIFENESIN/DM 5ML CUP PO (21:37)
[2019-02-11] MEDS: FAMOTIDINE 20 MG TAB PO (21:37)
[2019-02-11] MEDS: HALOPERIDOL 5 MG INJ IM (21:38)
[2019-02-11] MEDS: FUROSEMIDE 20 MG INJ IV (21:39)
[2019-02-11] MEDS: LEVALBUTEROL (NEB) 0.63 MG/3 ML AMP HHN (21:59)
[2019-02-12] MEDS: ACETAMINOPHEN 325 MG TAB PO ×3 (01:28→19:17)
[2019-02-12] MEDS: traMADol 50 MG TAB PO (04:00)
[2019-02-12] MEDS: FERROUS SULFATE (EC) 325 MG TAB PO (09:53)
[2019-02-12] MEDS: FLUTICASONE 0.05% 16 GM NAS SPRAY NASAL ×2 (09:53→21:00)
[2019-02-12] MEDS: ASPIRIN (EC) 81 MG TAB PO (09:53)
[2019-02-12] MEDS: CYANOCOBALAMIN 500 MCG TAB PO (09:53)
[2019-02-12] MEDS: SENNA/DOCUSATE NA (8.6MG/50MG) TAB PO (09:53)
[2019-02-12] MEDS: NICOTINE (14 MG/24 HR) PATCH TRANSDERM (09:54)
[2019-02-12] MEDS: FAMOTIDINE 20 MG TAB PO (21:00)
[2019-02-12] MEDS: traZODone 50 MG TAB PO (23:10)
[2019-02-13 06:26] LABS: ADD MAN DIFF? NO
[2019-02-13 06:41] LABS: WHITE BLOOD COUNT 9.6 10^3/ul (4.8-10.8)
[2019-02-13 06:41] LABS: BASOPHILS % 0.3 % (0.0-2.0); EOSINOPHILS # 0.2 10^3/ul (0.0-0.5); EOSINOPHILS % 1.9 % (0.0-7.0); HEMATOCRIT 30.9 % (42.0-52.0); HEMOGLOBIN 10.4 g/dl (14.0-18.0); LYMPHOCYTES # 1.2 10^3/ul (0.8-2.9); LYMPHOCYTES % 12.2 % (15.0-51.0); MEAN CORPUSCULAR HEMOGLOBIN 33.5 pg (29.0-33.0); MEAN CORPUSCULAR HGB CONC 33.7 g/dl (32.0-37.0); MEAN CORPUSCULAR VOLUME 99.7 fl (82.0-101.0); MEAN PLATELET VOLUME 12.4 fl (7.4-10.4); MONOCYTE # 0.6 10^3/ul (0.3-0.9); MONOCYTES % 6.1 % (0.0-11.0); NEUTROPHIL # 7.6 10^3/ul (1.6-7.5); NEUTROPHILS % 78.9 % (39.0-77.0); PLATELET COUNT 164 10^3/UL (140-415)
[2019-02-13 07:04] LABS: ANION GAP 5 (5-13); BLOOD UREA NITROGEN 23 mg/dl (7-20); CALCIUM 8.9 mg/dl (8.4-10.2); CARBON DIOXIDE 29 mmol/L (21-31); CHLORIDE 101 mmol/L (97-110); CREATININE 1.11 mg/dl (0.61-1.24); GLUCOSE 96 mg/dl (70-220); MAGNESIUM 2.1 mg/dl (1.7-2.5); PHOSPHORUS 3.4 mg/dl (2.5-4.9); POTASSIUM 3.4 mmol/L (3.5-5.1); SODIUM 135 mmol/L (135-144)
[2019-02-13] MEDS: FLUTICASONE 0.05% 16 GM NAS SPRAY NASAL ×2 (08:45→21:47)
[2019-02-13] MEDS: SENNA/DOCUSATE NA (8.6MG/50MG) TAB PO (08:46)
[2019-02-13] MEDS: CYANOCOBALAMIN 500 MCG TAB PO (08:46)
[2019-02-13] MEDS: ASPIRIN (EC) 81 MG TAB PO (08:46)
[2019-02-13] MEDS: FERROUS SULFATE (EC) 325 MG TAB PO (08:46)
[2019-02-13] MEDS: POTASSIUM CHLORIDE (SR) 20 MEQ TAB PO (08:46)
[2019-02-13] MEDS: FUROSEMIDE 20 MG TAB PO (08:47)
[2019-02-13] MEDS: NICOTINE (14 MG/24 HR) PATCH TRANSDERM (08:48)
[2019-02-13] MEDS: ACETAMINOPHEN 325 MG TAB PO (15:27)
[2019-02-13] MEDS: FAMOTIDINE 20 MG TAB PO (21:47)
[2019-02-14] MEDS: traZODone 50 MG TAB PO (03:26)
[2019-02-14 06:45] LABS: ANION GAP 5 (5-13); BLOOD UREA NITROGEN 22 mg/dl (7-20); CALCIUM 9.2 mg/dl (8.4-10.2); CARBON DIOXIDE 31 mmol/L (21-31); CHLORIDE 101 mmol/L (97-110); CREATININE 1.12 mg/dl (0.61-1.24); GLUCOSE 104 mg/dl (70-220); PHOSPHORUS 3.4 mg/dl (2.5-4.9); POTASSIUM 4.1 mmol/L (3.5-5.1); SODIUM 137 mmol/L (135-144)
[2019-02-14] MEDS: NICOTINE (14 MG/24 HR) PATCH TRANSDERM (08:40)
[2019-02-14] MEDS: FLUTICASONE 0.05% 16 GM NAS SPRAY NASAL (08:40)
[2019-02-14] MEDS: ASPIRIN (EC) 81 MG TAB PO (08:41)
[2019-02-14] MEDS: SENNA/DOCUSATE NA (8.6MG/50MG) TAB PO (08:41)
[2019-02-14] MEDS: CYANOCOBALAMIN 500 MCG TAB PO (08:41)
[2019-02-14] MEDS: FUROSEMIDE 20 MG TAB PO (08:41)
[2019-02-14] MEDS: FERROUS SULFATE (EC) 325 MG TAB PO (08:41)
[2019-02-14] MEDS: ACETAMINOPHEN 325 MG TAB PO (17:18)
== END 2019-02-14 19:41 | DRG 91 ==
LOC: TEL 21:19 → 6WM 02-08 06:00 → PP2 02-05 14:17 → E/R 18:07 → 6WM 02-05 17:43
PROVIDERS: Internal Medicine
DX: G92 Toxic encephalopathy (principal); J96.01 Acute respiratory failure with hypoxia; I21.A1 Myocardial infarction type 2; N17.9 Acute kidney failure, unspecified; E87.1 Hypo-osmolality and hyponatremia; E87.3 Alkalosis; R65.10 Systemic inflammatory response syndrome (SIRS) of non-infectious origin without acute organ dysfunction; J44.1 Chronic obstructive pulmonary disease with (acute) exacerbation; I13.0 Hypertensive heart and chronic kidney disease with heart failure and stage 1 through stage 4 chronic kidney disease, or unspecified chronic kidney disease; I50.30 Unspecified diastolic (congestive) heart failure; N18.4 Chronic kidney disease, stage 4 (severe); I48.91 Unspecified atrial fibrillation; R10.13 Epigastric pain; E53.8 Deficiency of other specified B group vitamins; E87.6 Hypokalemia; D72.829 Elevated white blood cell count, unspecified; G31.84 Mild cognitive impairment of uncertain or unknown etiology; R06.89 Other abnormalities of breathing
CPT/HCPCS: 36415; 36600; 70450; 71045; 74018; 76775; 80048; 80053; 81001; 81003; 82043; 82150; 82607; 82746; 82803; 83036; 83605; 83690; 83735; 83880; 84100; 84155; 84300; 84439; 84443; 84480; 84484; 85025; 85610; 85730; 87040-91; 87086; 92526; 92610; 93005; 93306; 94640; 94644; 94660; 94664; 96374; 96375; 97110; 97116; 97161; 97530; 99285-25